=== PATIENT | female | born 1975 | race Caucasian/White ===

== ENCOUNTER 2016-04-29 21:05 | Emergency (ER) | payer OTHER | END 2016-04-29 22:17 | disposition home or self-care (01) | LOC: ER 21:05 | DX: J01.90 Acute sinusitis, unspecified (principal); K64.9 Unspecified hemorrhoids; F17.210 Nicotine dependence, cigarettes, uncomplicated; Z88.8 Allergy status to other drugs, medicaments and biological substances ==

== ENCOUNTER 2016-05-09 13:18 | Emergency (ER) | payer OTHER | END 2016-05-09 16:23 | disposition home or self-care (01) | LOC: ER 13:18 | DX: M54.30 Sciatica, unspecified side (principal); F17.210 Nicotine dependence, cigarettes, uncomplicated; Z88.8 Allergy status to other drugs, medicaments and biological substances ==